=== PATIENT | female | born 1985 | race Asian ===

== ENCOUNTER → 2017-04-12 | Outpatient (CLI) | payer OTHER ==
[~2017-04-12] MED LIST: PRENTAB26 PO
[2017-04-12 14:14] LABS: INFLUENZA A PCR Neg for Influ A (NEG); INFLUENZA B PCR POS for Influ B (NEG)
== END | disposition home or self-care (01) ==
LOC: C.LAB1850 11:45
PROVIDERS: ATTEND Family Medicine
DX: R68.89 Other general symptoms and signs (principal)